=== PATIENT | female | born 1965 | race Caucasian/White ===

== ENCOUNTER 2016-11-15 08:02 | Day surgery (SDC) | payer OTHER ==
[~2016-11-15] VITALS: Ht 162.6 cm; Wt 77.1 kg
[~2016-11-15 08:02] MED LIST: LEXAPRO20 MG PO; LIPITOR20 MG PO; MULTIPLE VITAM1 EAC1 PO; WELLBUTRIN XL300 MG PO
[2016-11-15 08:16] VITALS: BP 139/85
[2016-11-15] MEDS ORDERED: HYDROCODON-ACE1 EAC7 PO (11:27)
[2016-11-15] MEDS ORDERED: IBUPROFEN800 MG PO (11:27)
[2016-11-15 12:30] VITALS: BP 129/67
[2016-11-15 13:35] VITALS: BP 134/74
== END 2016-11-15 13:40 | disposition home or self-care (01) ==
LOC: SDC 08:02
DX: N93.9 Abnormal uterine and vaginal bleeding, unspecified (principal); D25.9 Leiomyoma of uterus, unspecified; F42.8 Other obsessive-compulsive disorder; F32.9 Major depressive disorder, single episode, unspecified; Z79.899 Other long term (current) drug therapy
CPT/HCPCS: 88307; J0131; J0330; J0690; J1100; J1170; J1885; J2250; J2405; J2710; J2765; J3010